=== PATIENT | female | born 1955 | race Caucasian/White ===

== ENCOUNTER 2025-02-22 05:43 | Day surgery (SDC) | payer MEDICARE ==
[2025-02-19 09:12] LABS: IMMATURE GRANULOCYTE ABSOLUTE 0.05 K/uL (0-1); NUCLEATED RED BLOOD CELLS 0.0 % (0.0-0.19); PLATELET COUNT (AUTO) 312 K/uL (130-400); RED BLOOD CELL COUNT(AUTO) 3.65 MIL/uL (4.00-5.50); RED CELL DISTRIBUTION WIDTH 13.5 % (11.0-15.5); WHITE BLOOD COUNT (AUTO) 6.3 K/uL (4.8-10.8)
[2025-02-19 09:18] VITALS: BP 130/62; PULSE 64; RESP 18; TEMP 98.4
[2025-02-19 09:25] LABS: CREATININE 1.5 mg/dL (0.5-1.0); GLOMERULAR FILTR. RATE CALC 37.0 mL/min (>90); GLUCOSE,RANDOM 85.0 mg/dL (70-105); SODIUM SERUM 139.0 mmol/L (136-145); UREA NITROGEN, BLOOD 28.0 mg/dL (7-18)
[2025-02-19 09:27] LABS: INR 1.14 (0.85-1.15)
--- NOTE | 2025-02-19 10:11 | EKG ---
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
--- NOTE | 2025-02-19 10:20 | HMCIMG ---
EXAM: CR Chest, 1 View. CLINICAL HISTORY: PRE OP COMPARISON: None provided. FINDINGS: LUNGS: The lungs show no infiltrate or other acute finding. PLEURAL SPACES: No evidence of pleural effusion or pneumothorax. MEDIASTINUM: The cardiomediastinal silhouette is within normal limits. BONES: No aggressive appearing osseous lesion seen. IMPRESSION: No acute cardiopulmonary pathology is evident. /Firth
--- NOTE | 2025-02-19 10:47 | NUR ---
REPORT REPORTED BMP TO ISABEL BARRON. RECEIVED ORDERS FOR NS 25OML BOLUS THEN 125ML/HR X4 HOURS.
[2025-02-19] MEDS: 0.9% NACL 500ML IV.SOLN 250 ML IV ONE (13:30)
[~2025-02-22] VITALS: Ht 160 cm; Wt 89.8 kg
[2025-02-22] VITALS (11 sets, daily range): BP systolic 104–134; BP diastolic 58–117; PULSE 53–67; RESP 8–15; TEMP 97–97.5
[~2025-02-22 05:43] MED LIST: 0.9%NACL 1000ML 1,000 ML IV SCH; ASPI-1005 PO; BACLOFEN PO; CALCIUM/D3 PO; FOLIC ACID PO; LEVO88CA5 PO; MAGNESIUM CITR PO; METO25TA6 PO; MVI PO; RANO10005 PO; SERT-439 PO; TAMOXIFEN PO; UPAD15TA PO
[2025-02-22] MEDS: 0.9%NACL 1000ML 1,000 ML IV SCH (06:41)
[2025-02-22] MEDS ORDERED: HEParin-NS 1,000 UNIT/500 ML 1,000 ML IV ONE (07:09)
[2025-02-22] MEDS ORDERED: IOHEXOL 350 MG/ML 100ML INFUS..BTL IV ONE (07:09)
[2025-02-22] MEDS ORDERED: LIDOCAINE HCL 400MG/20ML VIAL ONE (07:09)
[2025-02-22] MEDS ORDERED: NITROGLYCERIN 50MG VIAL ONE (07:10)
[2025-02-22] MEDS ORDERED: MIDAZOLAM HCL 1 MG/ML 2ML VIAL ONE (07:28)
[2025-02-22] MEDS ORDERED: 0.9%NACL 1000ML 1,000 ML IV SCH (08:00)
[2025-02-22] MEDS ORDERED: DEXTROSE 50%-WATER 50 ML DISP.SYRIN IV PRN (08:00)
[2025-02-22] MEDS ORDERED: GLUCAGON 1MG KIT 1 MG ML IM PRN (08:00)
--- NOTE | 2025-02-22 08:04 | PRN ---
Left Heart Cath-Steven PROCEDURE: 1. Right common femoral arterial sheath placement. 2. Selective coronary angiogram. 3. Left heart catheterization. 4. Left ventriculogram. 5. Perclose device for closure of arteriotomy site 6. Conscious sedation INDICATIONS: CCS class [address] angiogram for critical stenosis mid LAD DESCRIPTION OF PROCEDURE: The patient was brought to the catheterization suite and prepped and draped in sterile fashion. An IV was started, if not already in place and both groins were exposed for arterial access. 1% lidocaine was used for local anesthesia and then a micropuncture kit was used to gain access and once free-flowing blood was seen, modified Seldinger technique was utilized to place a 6 [place] sheath into the right common femoral artery. Next, preformed JL4 and JR4 Catheters were then used to selectively engage the [place] coronary vessels and multiple hand contrast injections were performed in different views to define the co ronary anatomy. Next, a 6 [place] angled pigtail catheter was used to cross the aortic valve. Pressure measurements were obtained and then a left ventriculogram was performed in the 30 CARDOZO position. Next, pullback method was performed. At the end of the case, sheath was pulled after sheath shot revealed adequate location for Perclose device for closure of arteriotomy site. No complications occurred. FINDINGS: The left main artery has no significant stenosis present and it trifurcates into an LAD, small ramus intermediate and a nondominant left circumflex vessel. The left anterior descending artery gives rise to a high diagonal branch 1. Which bifurcates in its mid section and travels out towards the lateral apex with no stenosis present. The body of the LAD has no significant stenosis in the proximal mid or distal segments. Diagonal branch 2. Is a small vessel. Septal garbage truck helper 1 is a large vessel. Ramus intermediate is a small vessel without stenosis. The left circumflex artery is a nondominant system with small obtuse marginal branches coming off the parent vessel. There was no stenosis present in the body of the left circumflex. The right coronary artery is a dominant system giving rise to the PDA and RPL. There was no stenosis noted in the system. Ejection fraction is at 60% Wall motion appears to be normal LVEDP is moderately elevated There was no evidence of aortic stenosis or mitral regurgitation RECOMMENDATIONS: Continue home medications No heavy lifting 5 lb or greater for 3 days No driving 24 hours SULEMAN STEVEN MD Feb 22, 2025 08:04
== END 2025-02-22 12:45 | disposition home or self-care (01) ==
LOC: DAH 05:43
PROVIDERS: ATTEND Internal Medicine Cardiovascular Disease
DX: R94.39 Abnormal result of other cardiovascular function study (principal); I25.118 Atherosclerotic heart disease of native coronary artery with other forms of angina pectoris; I25.84 Coronary atherosclerosis due to calcified coronary lesion; I50.32 Chronic diastolic (congestive) heart failure; M06.9 Rheumatoid arthritis, unspecified; F41.9 Anxiety disorder, unspecified; F32.A Depression, unspecified; E03.9 Hypothyroidism, unspecified; I43 Cardiomyopathy in diseases classified elsewhere; R53.83 Other fatigue; E66.9 Obesity, unspecified; Z85.3 Personal history of malignant neoplasm of breast; Z90.12 Acquired absence of left breast and nipple; Z68.34 Body mass index [BMI] 34.0-34.9, adult; Z79.82 Long term (current) use of aspirin; Z79.899 Other long term (current) drug therapy
CPT/HCPCS: 80048; 83880; 85025; 85610; 85730; 36415; 71045; 93005; 93458; 99156; 99157; C1894 ×2; C1760; J3010; J3490 ×2; J7030; J2250; J1644; Q9967; A4215; A4222; A4221; A4663; A4216; A4606; Q9965; A4223 ×3; 96360; 96361